=== PATIENT | male | born 1975 | race Caucasian/White ===

== ENCOUNTER 2017-09-02 13:20 | Inpatient (IN) | payer OTHER ==
[~2017-09-02] VITALS: Ht 185.4 cm; Wt 114.8 kg
[~2017-09-02 13:20] MED LIST: ATIVAN1 MG PO; HYDROCODON-ACE1 EAC7 PO; KEFLEX500 MG PO; MACRODANTIN100 MG; PYRIDIUM200 MG PO
[2017-09-02 13:32] VITALS: BP 141/94
[2017-09-02] MEDS ORDERED: IBUPROFEN 400400 M2 PO (13:38)
[2017-09-02] MEDS ORDERED: PAXIL10 MG PO (13:38)
[2017-09-02] MEDS ORDERED: TYLENOL EXTRA500 MG PO (13:39)
[2017-09-02] MEDS ORDERED: CLEOCIN HCL150 MG PO (13:40)
[2017-09-02 14:07] LABS: ABSOLUTE EOSINOPHILS 0.1 thou/uL (0.0-0.7); ABSOLUTE LYMPHOCYTES 0.7 thou/uL (0.8-5.3); ABSOLUTE MONOCYTES 0.6 thou/uL (0.0-1.2); ABSOLUTE NEUTROPHILS 4.4 thou/uL (1.6-8.1); BASOPHILS 0.3 %; EOSINOPHILS 1.9 %; HEMATOCRIT 41.6 % (42.0-52.0); HEMOGLOBIN 14.3 gm/dL (14.0-18.0); LYMPHOCYTES 12.1 %; MCHC 34.3 g/dL (28.0-37.0); MCV 101.8 fL (80.0-100.0); MONOCYTES 9.6 %; MPV 6.4 fl. (7.2-11.1); NUCLEATED RBCS 0 /100WBC; PLATELET COUNT* 209 thou/uL (150-400); POLYS 76.1 %; RBC 4.09 mil/uL (4.50-6.00); RDW-CV 13.4 % (10.5-14.5); WBC 5.8 thou/uL (4.0-11.0)
[2017-09-02 14:17] LABS: CALCIUM 8.6 mg/dL (8.5-10.1); CREATININE 0.9 mg/dL (0.6-1.3); POTASSIUM 3.3 mmol/L (3.5-5.1)
[2017-09-02 14:22] LABS: TOTAL BILIRUBIN 0.7 mg/dL (<0.1-1.0); TOTAL PROTEIN 7.3 g/dL (6.4-8.2)
[2017-09-02 14:33] LABS: URINE BILIRUBIN NEGATIVE (Negative); URINE BLOOD TRACE (Negative); URINE CLARITY CLEAR; URINE COLOR YELLOW; URINE GLUCOSE-RANDOM 3+ (Negative); URINE KETONES 1+ (Negative); URINE LEUKOCYTES-REFLEX NEGATIVE (Negative); URINE NITRITE-REFLEX NEGATIVE (Negative); URINE PROTEIN 1+ (Negative); URINE UROBILINOGEN 0.2 E.U./dl (0.2-1.0)
[2017-09-02 14:44] LABS: BACTERIA-REFLEX None Seen /HPF (None Seen); CASTS None Seen /LPF (None Seen); CRYSTALS None Seen /LPF (None Seen); SQUAMOUS 0-3 Few /LPF (0-3); URINE RBC 0-2 Rare /HPF (0-2); URINE WBC-REFLEX 0-5 Rare /HPF (0-5)
--- NOTE | 2017-09-02 15:53 | NUR ---
PT GIVES PERMISSION FOR HIS IN-LAWS, JANIS AND MARLENA KONG TO HAVE INFORMATION ON THE PATIENT AND HIS WELL BEING. [phone]
[2017-09-02 16:16] VITALS: BP 140/93
--- NOTE | 2017-09-02 18:02 | NUR ---
PATIENT ARRIVED ON UNIT AT 1630 FROM ER. COMPLETED ADMISSION ASSESSMENT AND HISTORY. PATIENT SHAKING UNCONTROLLABLY DUE TO PAIN AND ANXIETY. GAVE ONE TIME DOSE OF ATIVAN, AND GAVE DOSE OF MORPHINE. PATIENT QUIT SHAKING SO MUCH. WAS UNABLE TO OBTAIN A BLOOD PRESSURE BEFORE PATIENT LEFT FOR SURGERY. PATIENT LEFT UNIT AT 1745 FOR PACU. COMPLETED HOURLY ROUNDING. CALL LIGHT RAFAEL FREIRE. ORIENTED PATIENT TO ROOM AND CALL LIGHT. COMPLETED HOURLY ROUNDING. WILL CONTINUE TO MONITOR.
--- NOTE | 2017-09-02 22:10 | NUR ---
PATIENT RETURNED FROM SURGERY AT 1999, A&O X4, COMPLAINS OF RECTAL PAIN 05/20, PT MEDICATED PRIOR TO ARRIVAL FROM SURGERY, PT DENIES N/V, IS EATING ICE, TOLERATING WELL, DISCUSSED PAIN CONTROL, DISCUSSED TOILETING, PT FAMILY AT BEDSIDE, THEY ARE GOING TO GET PT SOMETHING TO EAT, PT RESTING IN BED ON RT SIDE, DRESSING DRY AND INTACT, NO FURTHER COMPLAINTS/CONCERNS EXPRESSED
[2017-09-03 00:52] VITALS: BP 116/63
[2017-09-03 04:24] LABS: ABSOLUTE EOSINOPHILS 0.1 thou/uL (0.0-0.7); ABSOLUTE LYMPHOCYTES 1.2 thou/uL (0.8-5.3); ABSOLUTE MONOCYTES 0.8 thou/uL (0.0-1.2); ABSOLUTE NEUTROPHILS 4.1 thou/uL (1.6-8.1); BASOPHILS 0.4 %; EOSINOPHILS 2.2 %; HEMATOCRIT 37.1 % (42.0-52.0); HEMOGLOBIN 12.5 gm/dL (14.0-18.0); MCH 34.7 pg (26.0-34.0); MCHC 33.6 g/dL (28.0-37.0); MCV 103.2 fL (80.0-100.0); MONOCYTES 12.1 %; MPV 6.7 fl. (7.2-11.1); NUCLEATED RBCS 0 /100WBC; PLATELET COUNT* 191 thou/uL (150-400); POLYS 65.3 %; RDW-CV 13.9 % (10.5-14.5); WBC 6.2 thou/uL (4.0-11.0)
[2017-09-03 04:30] VITALS: BP 104/63
[2017-09-03 05:04] LABS: CALCIUM 7.9 mg/dL (8.5-10.1); CREATININE 0.8 mg/dL (0.6-1.3); POTASSIUM 3.6 mmol/L (3.5-5.1)
--- NOTE | 2017-09-03 05:55 | NUR ---
PT VERY PLEASANT THIS SHIFT, ALERT AND ORIENTED X4, PAIN CONTROLLED WITH SCHEDULED IV MEDS AND PRN PO MEDS, RECTAL DRESSING REMAINS INTACT, SMALL AMOUNT OF SEROSANGUINOUS DRAINAGE PRESENT, PT VOIDING PER URINAL, 300ML DARK CONCENTRATED URINE SINCE ARRIVAL, NO DISTENSION OF BLADDER NOTED, PT EATING AND DRINKING WITHOUT DIFFICULTY, CONTINUES ON IV ABX WITH NO ADVERSE REACTION NOTED, AFEBRILE,REMAINS ON ROOM AIR, SCDS ON ,CALL LIGHT WITHIN REACH, PT HAS NOT BEEN OUT OF BED THIS SHIFT
[2017-09-03 08:00] VITALS: BP 111/57
--- NOTE | 2017-09-03 11:44 | OP ---
[address] [address] OPERATIVE REPORT Name: CHARLEY STEARNS Room: [address] IN [facility]#: [id number] Admission: 09/02/17 Attend Phys: Kev Santoyo, Discharge: Date of : 77 Report #: [id number] THIS REPORT FOR: //name// CC: LYNSEY ROBERTSON Physician staff Kev Santoyo DATE OF SERVICE: 09/02/2017 PREPROCEDURE DIAGNOSIS: Perirectal abscess. POSTPROCEDURE DIAGNOSIS: Perirectal abscess. FINDINGS: Left buttock perirectal abscess. Underlying cavity was approximately 6 x 5 x 5 cm. We obtained approximately 100 mL of purulent fluid. SURGEON: Suzie Kendall DO. PARTS PROFESSIONAL: Teofilo Lawrence, PGY1. PROCEDURE PERFORMED: Incision and drainage of perirectal abscess. ANESTHESIA: LMA and local. ESTIMATED BLOOD LOSS: 10 mL. DRAINS: None. SPECIMENS: Cultures. COMPLICATIONS: None. CONDITION: Stable. DISPOSITION: PACU to the floor. HISTORY OF PRESENT ILLNESS: The patient is a very pleasant 42-year-old male who presented to the ER today with a complaint of worsening pain and swelling in his left buttock. He had been seen by his primary care physician earlier this week for the same and was prescribed clindamycin, but had no improvement. Workup here revealed an elevated glucose, which the patient was not aware of any underlying diabetes. CT scan revealed a left buttock perirectal abscess. The patient was then consented for incision and drainage. Risks discussed included bleeding, infection, pain, scar formation, recurrence, need for further surgery and risks of general anesthesia. The patient understood these risks and elected to proceed. [address] [address] OPERATIVE REPORT Name: CHARLEY STEARNS Room: [address] IN [facility].#: [id number] Admission: 09/02/17 Attend Phys: Kev Santoyo, Discharge: Date of : 77 Report #: [id number] DESCRIPTION OF PROCEDURE: The patient was brought to the operating room. He was laid supine on the operating room table. SCDs were placed on bilateral lower extremities. The patient was already on antibiotics in the perioperative period. General LMA anesthesia was induced by anesthesia without difficulty. The patient was placed in lithotomy. Perineum was prepped and draped in standard sterile fashion. Timeout was performed to verify patient and procedure. A 10 mL of 0.5% Marcaine were injected in the area of palpable perirectal abscess and 3 cm incision was made with 15 blade with immediate results of a large gush of purulent fluid. Cultures were obtained. Finger was introduced into the cavity and any loculations were broken up. Cavity was then copiously irrigated with saline until clear. Cautery was used for hemostasis. The wound was then packed with 1 inch iodoform. The skin was then cleansed and covered with an ABD and underpants were placed to hold the dressing. The patient was allowed to awake from anesthesia, was extubated and transported to the recovery room with no further difficulties. Counts were correct at the conclusion of the case. <ELECTRONICALLY SIGNED> By: Suzie Kendall DO 09/03/17 1144 [id number] Kendall DO /nt
[2017-09-03 16:00] VITALS: BP 109/80
--- NOTE | 2017-09-03 16:41 | NUR ---
PT UP IN ROOM THROUGHOUT SHIFT. TOLERATING PO WELL. DENIES NAUSEA. PAIN WELL CONTROLLED WITH PO MEDS. IV ABX GIVEN ORDERED.VOIDING PER URINAL
[2017-09-04 02:05] LABS: GLYCOHEMOGLOBIN (HGB A1C) 6.1 % (4.8-5.6)
--- NOTE | 2017-09-04 06:37 | NUR ---
pt alert and oriented this morning, pt has less complaints of pain through the night, minimal sersanguinous drainage from surgical site, pt refuses long acting insulin at bedtime, blood sugar was 112, pt does not feel he is a diabetic and is requesting A1c to confirm diagnosis, pt denies n/v this shift, continues on iv abx, temp 98.5, pt resting in bed with eyes closed at this time, call light within reach
[2017-09-04 07:17] LABS: HEMATOCRIT 36.4 % (42.0-52.0); HEMOGLOBIN 12.4 gm/dL (14.0-18.0); MCH 34.7 pg (26.0-34.0); MCHC 34.1 g/dL (28.0-37.0); MCV 101.6 fL (80.0-100.0); MPV 6.2 fl. (7.2-11.1); RBC 3.58 mil/uL (4.50-6.00); RDW-CV 13.6 % (10.5-14.5); WBC 4.9 thou/uL (4.0-11.0)
[2017-09-04 07:28] LABS: ALBUMIN 2.6 g/dL (3.4-5.0); CREATININE 0.7 mg/dL (0.6-1.3); MAGNESIUM 2.3 mg/dL (1.8-2.4); POTASSIUM 3.3 mmol/L (3.5-5.1); TOTAL BILIRUBIN 0.6 mg/dL (<0.1-1.0); TOTAL PROTEIN 6.5 g/dL (6.4-8.2)
[2017-09-04] MEDS ORDERED: CLEOCIN HCL300 MG PO (08:22)
[2017-09-04 08:45] VITALS: BP 144/89
--- NOTE | 2017-09-04 09:26 | NUR ---
ASSUMED CARES IN AM. ASSESSMENT DOCUMENTED. CALL LIGHT IN REACH AND BED IN LOWEST AND LOCKED POSITION. DR WAS JUST IN ROOM AND EDUCTED PT WITH PACKING AND CHANGING THE DRESSING. PT DENIES PAIN AND DISCOMFORT. PT IS READY FOR DISCHARGE AND WAITING FOR INSTRUCTION. CALL LIGHT IS IN REACH AND BED IN LOWEST AND LOCKED POSITION. WILL CONTINUE WITH PLAN OF CARE
[2017-09-04] MEDS ORDERED: COLACE100 MG PO (10:23)
[2017-09-04] MEDS ORDERED: IBU800 MG PO (10:25)
[2017-09-04] MEDS ORDERED: MIRALAX17 GM PO (10:28)
[2017-09-04 10:33] VITALS: BP 144/89
[2017-09-04 13:40] VITALS: BP 144/89
--- NOTE | 2017-09-04 14:00 | NUR ---
PT.TO BE DISCHARGED TODAY WITH HOME HEALTH. CALLED [facility] AND GAVE INFORMATION. CASE #[id number]. THEY WILL SET UP HOMEHEALTH NURSING FOR DRESSING CHANGES AND WOUND PACKING. THEY WILL CALL CM BACK WITH INFORMATION. HOME HEALTH AGENCY WILL CALL PT.TO SET UP APPT.TIME. INFORMED PT. HE UNDERSTOOD. HE SAID HIS WILL BE ABLE TO CHANGE HIS DRESSING. EXPLAINED HH WILL TEACH HER HOW TO DO DRESSING CHANGE AND THEN SHE CAN DO DAILY. FAXED INFORMATION TO [facility] [phone].
--- NOTE | 2017-09-04 14:14 | NUR ---
PATIENT LEFT UNIT AMBULATORY WITH NURSING STAFF AT 1415. IV DC'D. EDUCATED PATIENT ON NEW MED SCRIPTS AND DISCHARGE INSTRUCTIONS. WENT OVER PACKING AGAIN WITH PATIENT. PATIENT FELT COMFORTABLE WITH DRESSING CHANGES.
[2017-09-04 14:33] VITALS: BP 144/89
--- NOTE | 2017-09-08 14:30 | NUR ---
CALL FROM ANTONIO/[facility]-[phone]. SHE SAID THEY RECEIVED ASSIGNMENT TO SEE PT.FOR DRESSING CHANGES AND PACKING WOUND,FROM [facility]. SHE SPOKE WITH PT.ON WED AM. WHEN SHE CALLED AND TOLD HIM THE TIME OF THE VISIT HE SAID HE WAS LEAVING IN 10 MIN. SHE ASKED IF RN COULD COME THE NEXT AM. HE SAID YES. WHEN NURSE GOT THERE, NO ONE WOULD ANSWER THE DOOR OR ANSWER THEIR PHONE. SHE LEFT MESSAGES FOR PT.TO RETURN HER CALL BUT HE DID NOT. CM CALLED PT. HE ANSWERED. EXPLAINED ABOVE. HE SAID HE FELT AGENCY WAS UNPROFESSIONAL AND 'BLEW HIM OFF'. HE SAID HIS WAS PACKING AND CHANGING DRESSING JUST FINE AND THEY DID NOT NEED HOME HEALTH. ANTONIO NOTIFIED OF WHAT PT.TOLD CM.
== END 2017-09-04 14:37 | disposition home health service (06) | DRG 394 ==
LOC: M.ERS 13:20 → M.ORTHSURG 15:54 → M.TBA-ER 15:54 → M.ORTHSURG 16:28
PROVIDERS: Nurse Practitioner Family; Surgery; ADMIT Family Medicine
PROC: 0J990ZX Drainage of Buttock Subcutaneous Tissue and Fascia, Open Approach, Diagnostic (ICD-10-PCS; principal; 2017-09-02)
DX: K61.1 Rectal abscess (principal); E44.0 Moderate protein-calorie malnutrition; E66.01 Morbid (severe) obesity due to excess calories; F12.10 Cannabis abuse, uncomplicated; E11.65 Type 2 diabetes mellitus with hyperglycemia; E78.00 Pure hypercholesterolemia, unspecified; F41.9 Anxiety disorder, unspecified; Z68.33 Body mass index [BMI] 33.0-33.9, adult; Z88.1 Allergy status to other antibiotic agents; Z79.2 Long term (current) use of antibiotics; Z79.899 Other long term (current) drug therapy; Z88.2 Allergy status to sulfonamides; Z83.3 Family history of diabetes mellitus; Z82.49 Family history of ischemic heart disease and other diseases of the circulatory system

== ENCOUNTER 2019-05-03 19:35 | Emergency (ER) | payer OTHER ==
[~2019-05-03] VITALS: Ht 185.4 cm; Wt 102.1 kg
[~2019-05-03 19:35] MED LIST changes: +CLEOCIN HCL150 MG PO; +CLEOCIN HCL300 MG PO; +COLACE100 MG PO; +IBU800 MG PO; +IBUPROFEN 400400 M2 PO; +MIRALAX17 GM PO; +PAXIL10 MG PO; +TYLENOL EXTRA500 MG PO
[2019-05-03 20:16] LABS: URINE BLOOD 2+ (Negative); URINE CLARITY CLEAR; URINE COLOR YELLOW; URINE GLUCOSE-RANDOM NEGATIVE (Negative); URINE KETONES TRACE (Negative); URINE LEUKOCYTES-REFLEX NEGATIVE (Negative); URINE PROTEIN TRACE (Negative); URINE SPECIFIC GRAVITY >= 1.030 (1.005-1.030)
[2019-05-03 20:18] LABS: ABSOLUTE BASOPHILS 0.1 thou/uL (0.0-0.2); ABSOLUTE LYMPHOCYTES 1.6 thou/uL (0.8-5.3); ABSOLUTE MONOCYTES 0.9 thou/uL (0.0-1.2); ABSOLUTE NEUTROPHILS 6.7 thou/uL (1.6-8.1); BASOPHILS 0.8 %; EOSINOPHILS 0.5 %; HEMATOCRIT 32.7 % (42.0-52.0); HEMOGLOBIN 11.7 gm/dL (14.0-18.0); LYMPHOCYTES 17.3 %; MCH 37.4 pg (26.0-34.0); MCHC 35.6 g/dL (28.0-37.0); MONOCYTES 10.1 %; MPV 8.4 fl. (7.2-11.1); NUCLEATED RBCS 0 /100WBC; PLATELET COUNT* 148 thou/uL (150-400); POLYS 71.3 %; RBC 3.12 mil/uL (4.50-6.00); RDW-CV 17.1 % (10.5-14.5); WBC 9.4 thou/uL (4.0-11.0)
[2019-05-03 20:19] LABS: ICTOTEST (BILI CONFIRMATORY) Positive (Negative); URINE BILIRUBIN 2+ (Negative); URINE NITRITE-REFLEX POSITIVE (Negative)
[2019-05-03 20:21] LABS: CALCIUM 7.4 mg/dL (8.5-10.1); CREATININE 0.8 mg/dL (0.6-1.3); POTASSIUM 3.3 mmol/L (3.5-5.1)
[2019-05-03 20:25] LABS: ALBUMIN 2.5 g/dL (3.4-5.0); AMP/METHAMP Negative (Negative); APTT 33.6 Seconds (25.0-31.3); BARBITURATES Negative (Negative); BENZODIAZEPINES Negative (Negative); COCAINE Negative (Negative); INR 1.5; METHADONE Negative (Negative); OPIATES Negative (Negative); PCP Negative (Negative); PROTIME 15.4 Seconds (9.20-11.50); THC POSITIVE (Negative); TOTAL BILIRUBIN 3.6 mg/dL (<0.1-1.0); TOTAL PROTEIN 6.4 g/dL (6.4-8.2)
[2019-05-03 20:26] LABS: SQUAMOUS 0-3 Few /LPF (0-3)
[2019-05-03 20:27] LABS: BACTERIA-REFLEX None Seen /HPF (None Seen); CRYSTALS None Seen /LPF (None Seen); HYALINE CASTS 0-3 Few /LPF (None Seen); MUCUS >6 Heavy strn/LPF (None Seen); URINE RBC 3-10 Few /HPF (0-2); URINE WBC-REFLEX 0-5 Rare /HPF (0-5)
[2019-05-03 20:41] LABS: INFLUENZA A ANTIGEN Negative (Negative); INFLUENZA B ANTIGEN Negative (Negative)
[2019-05-03 20:48] LABS: MAGNESIUM 1.5 mg/dL (1.8-2.4)
[2019-05-03 23:36] VITALS: BP 129/77
--- NOTE | 2019-05-04 10:22 | EKG ---
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: : 1975 Requested By: Melanie Orr Order Number: [id number] : Nael Pruett Measurements Intervals [place] Rate: 97 P: 34 IN: 157 QRS: 55 QRSD: 101 T: -9 QT: 386 QTc: 491 Interpretive Statements Sinus rhythm Borderline T abnormalities, inferior leads Borderline prolonged QT interval Compared to ECG 03/17/2014 23:15:10 T-wave abnormality now present Electronically Signed On 05-04-2019 10:21:30 STAFF DEVELOPMENT NURSE by Nael Pruett [email or web address] <ELECTRONICALLY SIGNED> By: Nael Pruett MD, FAC 05/04/19 1021 08 08 Nael Pruett MD, [facility] /EPI
== END 2019-05-03 23:37 | disposition still patient (30) ==
LOC: M.ERS 19:35
PROVIDERS: Physician Assistant
DX: K70.30 Alcoholic cirrhosis of liver without ascites (principal); N39.0 Urinary tract infection, site not specified; R74.8 Abnormal levels of other serum enzymes; R60.1 Generalized edema; R94.6 Abnormal results of thyroid function studies; Z90.89 Acquired absence of other organs; Z88.1 Allergy status to other antibiotic agents; Z88.2 Allergy status to sulfonamides; Z88.8 Allergy status to other drugs, medicaments and biological substances